=== PATIENT | female | born 1980 | race Caucasian/White ===

== ENCOUNTER → 2016-09-19 | Outpatient (CLI) | payer OTHER ==
[~2016-09-19] MED LIST: CALCTAB5 PO; CLOZ100T18 PO; CYAN500T13 PO; ERGO500037 PO; ESCI1TAB10 PO; LAMO100T16 PO; LEVO50TA PO; LURA40TA PO; OXYB15TA12 PO; PROP20TA67 PO; VITAMIN E PO
--- NOTE | 2016-09-19 11:25 | DIAGNOSTIC IMAGING REPORT ---
CHEST CT WITHOUT CONTRAST CT DOSE: 652.12 mGycm HISTORY: Abnormal CT exam J90 Pleural effusion on left TECHNIQUE: Multiaxial CT images of the chest were performed without contrast. COMPARISON: 04/08/2016 FINDINGS: Considerable improvement compared to the prior exam. 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 Residual focal parenchymal infiltrative process is seen superior segment left lower lobe. There are no significant consolidative changes currently. The area of round 5.7 cm consolidative change from the prior study has shown near complete resolution. Trace pleural fluid left lung base is stable. Subtle interstitial change superior segment right lower lobe. Hilar and mediastinal regions show several small shotty nodes with no significant or bulky kaci change. Limited evaluation of the upper abdomen is unremarkable. IMPRESSION: Marked improvement compared to the prior exam. 2. The 5.7 cm consolidative process left lung base show near complete resolution with minimal residual infiltrative change superior segment left lower lobe. 3. Subtle interstitial prominence superior segment right lower lobe. Electronically signed by: Bam Molina M.D. 09/19/2016 11:23 AM
== END | disposition home or self-care (01) ==
LOC: C.CTS 10:49
PROVIDERS: ATTEND Surgery
DX: J90 Pleural effusion, not elsewhere classified (principal)

== ENCOUNTER → 2017-09-04 | Outpatient (CLI) | payer OTHER ==
--- NOTE | 2017-09-04 13:52 | DIAGNOSTIC IMAGING REPORT ---
(CHEST) THORAX WITHOUT CLINICAL HISTORY: L LUNG SCARRING ABNORMAL CHEST CT. FOLLOW-UP STUDY. COMPARISON STUDY: 09/19/2016, 04/08/2016. CT DOSE: 444.96 mGycm TECHNIQUE: CT of the thorax was performed from the thoracic inlet to the lung bases. Images are reviewed in the axial, sagittal, and coronal planes. IV contrast was not administered for this examination. A dose lowering technique was utilized adhering to the principles of ALARA. FINDINGS: Thyroid: Imaged portions of the thyroid gland are normal in appearance. Thoracic aorta: The thoracic aorta is normal in course and caliber, noting standard 3 vessel arch anatomy. Heart: The heart is normal in size and configuration, without pericardial effusion. Lungs and pleural spaces: There is improving left basilar pleural thickening. Linear left basilar opacities are felt to represent areas of cortical scarring. There are persistent but improving groundglass opacities within the superior segment left lower lobe. Mediastinum: There is no evidence of pathologic adenopathy Navya: There is no evidence of pathologic adenopathy given the limitations of a noncontrast study Axilla: There is no evidence of pathologic adenopathy Upper abdomen: Partially visualized upper abdominal viscera is within normal limits. Skeletal structures: There are no lytic or blastic osseous lesions. IMPRESSION: 1. Persistent but improving groundglass opacities within the superior segment the left lower lobe 2. Persistent but improving pleural-parenchymal scarring at the left lung base Electronically signed by: Evan Charles M.D. 09/04/2017 1:51 PM Dictated Date/Time: 09/04/2017 1:45 PM
== END | disposition home or self-care (01) ==
LOC: C.CTS 13:26
PROVIDERS: ATTEND Internal Medicine Pulmonary Disease
DX: R91.8 Other nonspecific abnormal finding of lung field (principal)